=== PATIENT | male | born 1945 | race Caucasian/White ===

== ENCOUNTER → 2017-06-03 | Outpatient (CLI) | payer MEDICARE ==
[~2017-06-03] MED LIST: ASPIR 8181 M1 PO; LIPITOR40 MG PO; LORCET 5-325 M1 EACH PO; PLAVIX75 MG PO; SYNTHROID125 MCG PO; ZYLOPRIM300 MG PO
== END | disposition home or self-care (01) ==
LOC: CDC 10:44
DX: Z01.810 Encounter for preprocedural cardiovascular examination (principal); G56.01 Carpal tunnel syndrome, right upper limb; I45.4 Nonspecific intraventricular block
CPT/HCPCS: 93000